=== PATIENT | male | born 2000 | race African-American/Black ===

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

== ENCOUNTER 2020-08-13 16:10 | Emergency (ER) | payer SELFPAY ==
[~2020-08-13] VITALS: Ht 180.3 cm; Wt 100.0 kg
[~2020-08-13 16:10] MED LIST changes: +FLEXERIL5 MG PO
[2020-08-13] MEDS ORDERED: ZOFRAN4 MG/TAB PO (17:54)
[2020-08-13 18:02] VITALS: BP 104/60
== END 2020-08-13 18:02 | disposition home or self-care (01) | DRG 866 ==
LOC: ED 16:10
DX: B34.9 Viral infection, unspecified (principal); F17.200 Nicotine dependence, unspecified, uncomplicated; Z20.822 Contact with and (suspected) exposure to COVID-19

== ENCOUNTER 2020-11-02 16:57 | Emergency (ER) | payer OTHER ==
[~2020-11-02 16:57] MED LIST changes: +ZOFRAN4 MG/TAB PO
[2020-11-02 18:20] VITALS: BP 123/61
== END 2020-11-02 18:20 | disposition home or self-care (01) | DRG 179 ==
LOC: ED 16:57
DX: U07.1 COVID-19 (principal); F17.200 Nicotine dependence, unspecified, uncomplicated